=== PATIENT | female | born 1950 | race Caucasian/White ===

== ENCOUNTER → 2016-07-25 | Outpatient (CLI) | payer OTHER ==
--- NOTE | 2016-07-25 15:36 | MAMMOGRAPHY REPORT ---
BILATERAL DIGITAL SCREENING MAMMOGRAM WITH CAD: 07/25/2016 CLINICAL HISTORY: Routine screening. Patient has no complaints. TECHNIQUE: Bilateral CC and MLO views were obtained. Current study was also evaluated with a Comput er Aided Detection (CAD) system. COMPARISON: Comparison is made to exams dated: 07/21/2015 mammogram, 06/26/2013 mammogram, 06/25/2012 shlomo mogram, 06/22/2011 mammogram, 06/21/2010 mammogram, and 05/18/2009 mammogram - [facility] ter. BREAST COMPOSITION: There are scattered areas of fibroglandular density in both breasts. FINDINGS: There is a 6.7 mm lobulated mass in the 11:00 middle one third of the right breast, for w hich additional targeted ultrasound is recommended. An asymmetry is seen in the lateral posterior r ight breast on the CC view, 6.1 cm from the nipple, thought to project superiorly on the MLO view. Additional spot compression tomosynthesis views and possibly ultrasound are recommended, although th is could represent normal overlapping fibroglandular tissue. Another possible focal asymmetry is se en in the upper outer posterior left breast, warranting additional spot compression tomosynthesis vi ews and possibly ultrasound. There are benign rim calcifications and round microcalcifications scattered bilaterally. No other galindo spicious mass, architectural distortion or cluster of microcalcifications is seen. IMPRESSION: ACR BI-RADS CATEGORY 0: INCOMPLETE EVALUATION: NEED ADDITIONAL IMAGING EVALUATION The 6.7 mm mass in the upper outer middle to anterior right breast, and bilateral asymmetries need a dditional imaging evaluation. The patient will be called to schedule an appointment. Approximately 10% of breast cancers are not detected with mammography. A negative mammographic repor t should not delay biopsy if a clinically suggestive mass is present. Sasha Carmona M.D. ay/:07/25/2016 14:19:37 [employer] Supervisor: Ethel CHOPRA(Adrian)(Fatoumata), [facility] letter sent: Addl Imaging 0 BI-RADS Code: ACR BI-RADS Category 0: Incomplete Evaluation: Need Additional Imaging Evaluation
== END | disposition home or self-care (01) ==
LOC: C.MAMM 10:11
DX: Z12.31 Encounter for screening mammogram for malignant neoplasm of breast (principal); N63 Unspecified lump in breast; N64.89 Other specified disorders of breast

== ENCOUNTER → 2016-08-09 | Outpatient (CLI) | payer OTHER ==
--- NOTE | 2016-08-09 15:58 | MAMMOGRAPHY REPORT ---
BILATERAL DIGITAL DIAGNOSTIC MAMMOGRAM TOMOSYNTHESIS AND TARGETED BILATERAL ULTRASOUND: 08/09/2016 CLINICAL HISTORY: 66-year-old woman called back from screening mammography for bilateral asymmetries and right breast mass. TECHNIQUE: Bilateral CC and MLO today digital and tomosynthesis spot compression views were obtaine d. COMPARISON: Comparison is made to exams dated: 07/25/2016 mammogram, 07/21/2015 mammogram, 07/18/2014 ma mmogram, 06/26/2013 mammogram, 06/25/2012 mammogram, and 06/22/2011 mammogram - [facility]. BREAST COMPOSITION: There are scattered areas of fibroglandular density in both breasts. FINDINGS: On the spot compression right cc view, there is persistence of an 8.3 x 6.7 mm oval circum scribed mass in the anterior lateral breast, which is in the 11:00 axis based on the MLO view. Furt her characterization with ultrasound was performed. The asymmetry in the lateral middle one third o f the right breast partially effaces on the spot compression CC view including tomosynthesis images and the appearance is similar to the 06/26/2013 and 06/21/2010 mammograms, suggesting it represents the patient's baseline. There is partial effacement of a 6 mm asymmetry in the lateral posterior left breast, best seen on t he CC view. A persistent lobulated 15 x 5 mm mass with associated coarse calcification in the upper outer anterior left breast. Further evaluation with ultrasound was performed in the superior and l ateral left breast. Real-time high-resolution sonographic evaluation was performed in the superior and lateral aspect of each breast. In the 11:00 right breast, 4 cm from the nipple, there is an oval parallel circumscri bed anechoic benign simple cyst measuring 6.3 x 3.7 x 7.0 mm. This correlates well with the circums cribed mammographic mass and is benign. A bilobed anechoic cyst is identified in the 10:00 right br east, 2 cm from the nipple, measuring 5.6 x 2.7 x 3.2 mm. There is mild duct ectasia in the 9:00 pe riareolar and retroareolar right breast. No other discrete solid or cystic mass is seen in the late ral or superior right breast. In the 1:00 left breast, 2 cm from the nipple, there are a conglomera te of solid masses one of which contains an internal echogenic focus likely representing a calcifica tion. The masses are connected via a tubular structure likely representing a duct and these masses could represent papillomas. In conglomerate they measure proximally 13.4 x 3.7 x 8.5 mm. This magalys elates well with the mammographic mass in the upper outer anterior breast and this may have been pre sent dating back to 2008. However, given that it could represent an intraductal process, definitive characterization with tissue sampling is amenable. There is a small lobulated isoechoic 3.2 mm mas s in the 5:00 periareolar left breast. It is unclear if this may correlate with the partially effac ing mammographic asymmetry but has a probably benign appearance. Pending benign pathology results i n the 1:00 left breast, a short interval follow-up left mammogram and possible repeat ultrasound is recommended to ensure stability in 6 months. IMPRESSION: ACR BI-RADS CATEGORY 4B: INTERMEDIATE SUSPICION FOR MALIGNANCY, TARGETED ULTRASOUND ACR BI-RADS CATEGORY 4B: INTERMEDIATE SUSPICION FOR MALIGNANCY 1. Ultrasound guided core biopsy is recommended for conglomerate of masses that are likely intraduc erna in the 1:00 left breast, 2 cm from the nipple that measure 13.4 mm. 2. Pending benign pathology results, a short interval follow-up left mammogram and repeat targeted ultrasound in the 5:00 axis is recommended to ensure stability of a personally effacing asymmetry in the lateral posterior left breast seen mammographically and a probably benign isoechoic 3 mm mass s een sonographically. 3. A circumscribed 8mm oval mass in the 11:00 anterior right breast correlates with a benign anecho ic simple cyst on ultrasound. An asymmetry in the lateral middle one third of the right breast part ially effaces on the tomosynthesis images and no suspicious sonographic correlate was identified. H owever, a short interval follow-up right mammogram including tomosynthesis images and possible repea t ultrasound is recommend to ensure stability in 6 months, although this most likely represent octavio l fibroglandular tissue given the similar appearance to prior mammograms. These results and recommendations were discussed with the patient at the time of the exam. She tent atively scheduled the left breast biopsy prior to leaving our department. Approximately 10% of breast cancers are not detected with mammography. A negative mammographic repor t should not delay biopsy if a clinically suggestive mass is present. Sasha Carmona M.D. ay/:08/09/2016 14:31:20 Afterschool: Rissa CHOPRA(Adrian)(Fatoumata), [facility] letter sent: Abnormal 4/5 BI-RADS Code: ACR BI-RADS Category 4B: Intermediate Suspicion For Malignancy Ultrasound BI-RADS: AC R BI-RADS Category 4B: Intermediate Suspicion For Malignancy
== END | disposition home or self-care (01) ==
LOC: C.MAMM 10:19
DX: N63 Unspecified lump in breast (principal); N64.89 Other specified disorders of breast

== ENCOUNTER → 2016-08-17 | Outpatient (CLI) | payer OTHER ==
--- NOTE | 2016-08-17 09:16 | Discharge Instructions ---
Discharge Instructions Procedure Procedure Date: Aug 17, 2016. Reason for visit: Left Mass. Discharge Discharge Date: Aug 17, 2016. Discharge Diagnosis: post left breast ultrasound guided core biopsy Instructions Activity Recommendations: Additional Limitations (see below) Return to School/Work: no limitations Recommended Home Diet: No Limitations Provider Instructions: ACTIVITY RECOMMENDATIONS: * No lifting, pushing, pulling or exercising the affected side for three days. RETURN TO SCHOOL/WORK: * You may return to work/school after the procedure, but do not perform any strenuous activities for 24 to 48 hours. MEDICATIONS: * Tylenol (two 325 mg) every four to six hours if needed for mild pain (if not allergic to Tylenol). DIET: * Resume previous diet. SPECIAL CARE INSTRUCTIONS: * Keep biopsy site dry for 24 hours. May shower after 24 hours, but do not soak (bathe) incision. * May remove Tegaderm (plastic patch) tomorrow AFTER showering. * Leave the steri-strips on for one week. Allow the steri-strips to fall off by themselves. If not off after one week, you may remove them. You may place a Bandaid crosswise over the strips, if desired. * Apply ice 10 minutes on and 10 minutes off as needed. * Wear a bra at bedtime to sleep more comfortably for 2-3 days. * Your referring physician should have the results after approximately 5 to 7 business days. * Call for unusual bleeding, fever, drainage, etc or if you have any questions call [phone] during normal business hours or after hours call Dr Carmona, . FOLLOW UP VISIT: Follow-up with Referring Physician as scheduled. Jose David Zaragoza Recommendations: Call your doctor if: * Temperature above 101 degrees * Pain not relieved by pain medicine ordered * There is increased drainage or redness from any incision * You have any unanswered questions or concerns. Your Doctors Instructions noted above were prepared by provider Sasha Carmona. Patient Signature Section: Patient Instructions Signature Page Ethel Mario Patient (or Guardian) Signature/Date: I have read and understand the instructions given to me by my caregivers. Caregiver/RN/Doctor Signature/Date: The above-named patient and/or guardian has received patient instructions on this date. + Original Patient Signature Page (only) stays with chart. Please make copy for patient.
--- NOTE | 2016-08-17 12:37 | MAMMOGRAPHY REPORT ---
THIS REPORT HAS BEEN AMENDED. ULTRASOUND GUIDED BIOPSY LEFT BREAST: 08/17/2016 CLINICAL HISTORY: Multilobulated hypoechoic solid mass identified in the 1:00 left breast on ultraso und. Patient presents for ultrasound guided core biopsy. COMPARISON: Comparison is made to exams dated: 08/09/2016 mammogram, 07/21/2015 mammogram, 07/18/2014 m ammogram, 06/26/2013 mammogram, 06/25/2012 mammogram, and 06/22/2011 mammogram - [facility]. PATIENT CONSENT: The procedure, risks and benefits were discussed with the patient and informed writ ten consent was obtained. Specific risks to this procedure include: bleeding, infection, puncture of adjacent structure, nontarget biopsy, sampling error, metal allergy and medication reaction. PROCEDURE DESCRIPTION: The multilobulated hypoechoic solid mass was again identified with ultrasound in the 1:00 left breast. This is the target for biopsy. A time out was performed and the left yue ast was agreed as the site of biopsy. The skin was prepped and draped in the usual sterile fashion. The solid multilobulated mass in the 1:00 left breast was chosen as the target for biopsy. Subcutane ous and intraparenchymal 1% buffered lidocaine, with and without epinephrine, was administered as lo don anesthesia. A skin incision was made. Through the incision, 3 samples were taken with a 12 gaug e Celero biopsy device. A metallic marker was placed at the biopsy site. Hemostasis was achieved aft er manual compression. The patient tolerated the procedure well and there was no immediate complicat ion. The samples were sent to the pathology department in an appropriately labeled container. Postprocedure left CC and ML tomosynthesis images demonstrate a new metallic biopsy marker associate d with a lobulated mass that has been relatively stable in the upper outer anterior left breast. Th e biopsy marker clip does not align with the original asymmetry in question. As per prior recommend ations, recommend follow-up diagnostic mammograms in each breast for a left breast asymmetry without sonographic correlate, right asymmetry without sonographic correlate and right breast mass that are all probably benign. IMPRESSION: ULTRASOUND GUIDED BIOPSY Status post ultrasound guided core needle biopsy of a multilobulated hypoechoic solid mass in the 1: 00 left breast, with biopsy marker placed at the site. Pending benign pathology results, follow-up bilateral diagnostic mammograms and possible repeat ultr asound is recommended in 6 months. The patient will receive notification of the biopsy results from her referring physician. Sasha Carmona M.D. ay/:08/17/2016 10:06:58 Clerical Secretary: Claudia MORFIN)(Fatoumata), [facility] AMENDMENT: 08/25/2016 Sasha Carmona M.D. Pathology results from the ultrasound-guided core needle biopsy of a conglomerate of hypoechoic vandana d-appearing masses in the 1:00 left breast yielded fibrocystic change with apocrine metaplasia, francisco llomatosis and fibroadenomatoid change. Carcinoma is not seen. The pathology results are concordan t with the imaging appearance. Prior recommendations from the diagnostic mammogram and ultrasound d ated 08/09/2016 still stand. Follow-up bilateral diagnostic mammograms in 6 months with possible ul trasound is recommended to ensure stability of other probably benign finding seen in each breast.
--- NOTE | 2016-08-17 12:37 | MAMMOGRAPHY REPORT ---
UNILATERAL LEFT DIGITAL DIAGNOSTIC MAMMOGRAM: 08/17/2016 CLINICAL HISTORY: Multilobulated hypoechoic solid mass in the 1:00 left breast. Patient presents fo r ultrasound guided core needle biopsy. She was initially called back from screening for bilateral masses and asymmetries. Please refer to the report from left breast ultrasound guided core biopsy performed at the same time for full detail. IMPRESSION: POST PROCEDURE IMAGING FOR MARKER PLACEMENT Please refer to the report from left breast ultrasound guided core biopsy performed at the same time for full detail. Approximately 10% of breast cancers are not detected with mammography. A negative mammographic repor t should not delay biopsy if a clinically suggestive mass is present. Sasha Carmona M.D. ay/:08/17/2016 09:20:36 [employer] Operator: Claudia CHOPRA(R)(Fatoumata), [facility] BI-RADS Code: Post Procedure Imaging For Marker Placement
== END | disposition home or self-care (01) ==
LOC: C.MAMM 08:23
DX: N60.82 Other benign mammary dysplasias of left breast (principal); D24.2 Benign neoplasm of left breast

== ENCOUNTER → 2017-02-07 | Outpatient (CLI) | payer BC ==
--- NOTE | 2017-02-08 16:01 | MAMMOGRAPHY REPORT ---
BILATERAL DIGITAL DIAGNOSTIC MAMMOGRAM TOMOSYNTHESIS WITH CAD AND TARGETED BILATERAL ULTRASOUND: 02/07 CLINICAL HISTORY: Follow-up in both breasts. Patient had a prior benign ultrasound-guided core biops y in the 1:00 left breast. She presents to reassess a benign appearing nodular asymmetry in the late ral posterior left breast, the lateral posterior right breast and a finding identified in the left 5: 00 breast on ultrasound. TECHNIQUE: Bilateral breast tomosynthesis in addition to standard 2D mammography was performed. Curre nt study was also evaluated with a Computer Aided Detection (CAD) system. COMPARISON: Comparison is made to exams dated: 08/17/2016 ultrasound biopsy, 08/17/2016 mammogram, 2016 ultrasound, 08/09/2016 mammogram, 07/25/2016 mammogram, and 07/21/2015 mammogram - [facility]. BREAST COMPOSITION: There are scattered areas of fibroglandular density in both breasts. FINDINGS: There is a stable ribbon shaped metallic biopsy marker in the 1:00 left breast, denoting th e site of prior benign biopsy. The nodular asymmetry in the lateral posterior left breast is less co nspicuous comparing to the 07/25/2016 mammogram, and currently appears similar to the prior 2012 and 2011 mammograms, suggesting benignity. No new suspicious mass, clustered microcalcifications or foca l area of distortion is seen in the left breast. A 7 mm circumscribed mass is again seen in the upper outer anterior right breast, previously document ed to represent a simple cyst on ultrasound. The asymmetry in the lateral, middle one third of the r ight breast on the CC view is no longer seen and there is normal-appearing fibrolinear glandular tiss ue on the corresponding tomosynthesis images. Targeted ultrasound was performed in the 5:00 left breast, and lateral right breast. In the 5:00 per iareolar left breast, a small lobulated isoechoic and hypoechoic mass is again seen measuring 3.3 x 1 .9 x 3.0 mm. An oval anechoic cyst is seen in the 12:00 left breast, 4 cm from the nipple, measuring 3.8 mm. Another circumscribed hypoechoic solid versus cystic masses identified in the 2:00 left yue ast, 3 cm from the nipple, measuring 2.9 x 2.7 x 2.7 mm. A benign anechoic simple cyst is again seen in the 11:00 right breast. Another small complicated cys t is identified in the 9:00 periareolar right breast measuring 5 mm. A round anechoic simple cyst is seen in the 10:00 periareolar right breast measuring 3 mm. No suspicious solid or cystic mass is se en in the lateral right breast on ultrasound. IMPRESSION: ACR-BI-RADS CATEGORY 3: PROBABLY BENIGN, TARGETED ULTRASOUND ACR-BI-RADS CATEGORY 3: PRO BABLY BENIGN 1. Stable post biopsy changes in the 1:00 left breast. A nodular asymmetry in the lateral posterior breast on the CC view is less conspicuous. A small isoechoic to hypoechoic nodule in the 5:00 left breast on ultrasound is stable compared to the prior ultrasound. Another six-month follow-up left di agnostic mammogram and targeted ultrasound is recommended to ensure longer stability. 2. Incidentally identified benign-appearing 3 mm hypoechoic mass versus nodular tissue in the 2:00 l eft breast, 3 cm from the nipple on ultrasound, which is also probably benign. However, a short inte rval follow-up targeted ultrasound of the left 2:00 axis is also recommended. 3. Less prominent asymmetry in the lateral right breast on the CC view, and no suspicious sonographi c correlate. This confirms normal overlapping hyperglandular tissue and no further close follow-up i s needed at this time. 4. Benign cysts are identified in the 9:00, 10:00 and 11:00 anterior right breast. These results and recommendations were discussed with the patient at the time of the exam. She tenta tively scheduled the left breast follow-up appointment prior to leaving our department. Approximately 10% of breast cancers are not detected with mammography. A negative mammographic report should not delay biopsy if a clinically suggestive mass is present. Sasha Carmona M.D. ay/:02/07/2017 15:48:12 Lan Analyst: Patrick CHOPRA(R)(Fatoumata), [facility] letter sent: Follow Up Recommended 3 BI-RADS Code: ACR-BI-RADS Category 3: Probably Benign Ultrasound BI-RADS: ACR-BI-RADS Category 3: Pr obably Benign
== END | disposition home or self-care (01) ==
LOC: C.MAMM 10:23
DX: N63 Unspecified lump in breast (principal); N64.89 Other specified disorders of breast; N60.01 Solitary cyst of right breast

== ENCOUNTER → 2017-08-25 | Outpatient (CLI) | payer OTHER ==
--- NOTE | 2017-08-28 08:23 | MAMMOGRAPHY REPORT ---
UNILATERAL LEFT DIGITAL DIAGNOSTIC MAMMOGRAM TOMOSYNTHESIS WITH CAD AND TARGETED LEFT ULTRASOUND: 08/25 CLINICAL HISTORY: Six-month follow-up of left breast nodularity. The patient reports no palpable lum ps or other complaints. TECHNIQUE: Breast tomosynthesis in addition to standard 2D mammography was performed. Current study was also evaluated with a Computer Aided Detection (CAD) system. Left CC and MLO 2D and tomosynthesi s images were obtained. COMPARISON: Comparison is made to exams dated: 02/07/2017 mammogram, 02/07/2017 ultrasound, 08/17/2016 u ltrasound biopsy, 08/17/2016 mammogram, 08/09/2016 ultrasound, and 08/09/2016 mammogram - [facility]. BREAST COMPOSITION: There are scattered areas of fibroglandular density in the left breast. FINDINGS: The previously described asymmetry seen within the left lateral breast on the cc view is le ss prominent on the current exam and appears similar on the current exam to multiple prior exams incl uding the 2012 exam. The remainder of the left breast is also stable compared to prior exams, withou t suspicious masses, calcifications, or areas of architectural distortion noted. Scattered nodularit y in the left breast is stable. A biopsy marker clip is again noted within the left upper outer quad rant from prior benign biopsy. Targeted ultrasound was performed of the left breast in the region of the mammographic masses for whi ch follow-up was recommended. In the left 5:00 periareolar breast, again noted is a small circumscri bed isoechoic and hypoechoic benign-appearing 2 x 3 x 2 mm mass. The mass is stable dating back to a t least the July 2016 exam and is considered benign given the morphology and stability and likely represents fibrocystic changes. In the left breast at 2:00, 3 cm from the nipple, again noted is a hypoechoic circumscribed benign-appearing 3 x 2 mm mass which is also not significantly changed and i s benign and compatible with a small cyst. IMPRESSION: ACR BI-RADS CATEGORY 2: BENIGN, TARGETED ULTRASOUND ACR BI-RADS CATEGORY 2: BENIGN Left lateral breast asymmetry appears stable dating back to at least the 2012 exam and is considered benign given long-term stability. Small benign-appearing circumscribed 3 mm masses in the left 5:00 and 2:00 breast are stable and are considered benign and likely represent fibrocystic changes. There is no mammographic or targeted sonographic evidence of malignancy. Return to annual mammogram screen ing schedule is recommended, due January 2018. The patient has been verbally notified of the results. Approximately 10% of breast cancers are not detected with mammography. A negative mammographic report should not delay biopsy if a clinically suggestive mass is present. Elsie Lucero M.D. ah/:08/25/2017 09:03:29 Tail Board Worker: Claudia CHOPRA(R)(M), [facility] letter sent: Normal 1/2 BI-RADS Code: ACR BI-RADS Category 2: Benign Ultrasound BI-RADS: ACR BI-RADS Category 2: Benign
== END | disposition home or self-care (01) ==
LOC: C.MAMM 08:23 → EDSTATUS 08:30
DX: N63.20 Unspecified lump in the left breast, unspecified quadrant (principal)

== ENCOUNTER → 2018-02-08 | Outpatient (CLI) | payer BC ==
--- NOTE | 2018-02-09 14:31 | MAMMOGRAPHY REPORT ---
BILATERAL DIGITAL SCREENING MAMMOGRAM TOMOSYNTHESIS WITH CAD: 02/08/2018 CLINICAL HISTORY: Routine screening. Patient has no complaints. TECHNIQUE: Breast tomosynthesis in addition to standard 2D mammography was performed. Current study w as also evaluated with a Computer Aided Detection (CAD) system. COMPARISON: Comparison is made to exams dated: 08/25/2017 mammogram, 02/07/2017 mammogram, 08/17/2016 shlomo mogram, 08/09/2016 mammogram, 07/25/2016 mammogram, and 07/21/2015 mammogram - [facility] BREAST COMPOSITION: There are scattered areas of fibroglandular density in both breasts. FINDINGS: No suspicious masses, calcifications, or areas of architectural distortion are noted in either breast . There has been no significant interval change compared to prior exams. Bilateral nodularity and sc attered bilateral benign-appearing calcifications are not significantly changed. A biopsy clip is ag ain noted within the left upper outer quadrant. IMPRESSION: ACR BI-RADS CATEGORY 2: BENIGN There is no mammographic evidence of malignancy. A 1 year screening mammogram is recommended.( 019) The patient will receive written notification of the results. Some breast cancers are not detected with mammography. A negative mammographic report should not esperanza y biopsy if a clinically suggestive mass is present. Elsie Lucero M.D. ah/:02/08/2018 14:38:24 [place]: RT Mariely(R)(M)(BD), [facility] letter sent: Normal 1/2 BI-RADS Code: ACR BI-RADS Category 2: Benign
== END | disposition home or self-care (01) ==
LOC: C.MAMM 09:14
DX: Z12.31 Encounter for screening mammogram for malignant neoplasm of breast (principal)